=== PATIENT | female | born 2000 ===

== ENCOUNTER 2021-01-23 18:34 | Emergency (ER) | payer SELFPAY ==
--- NOTE | 2021-01-23 19:38 | Emergency Department Report ---
Chief Complaint: Dental/Oral Stated Complaint: TOOTH PAIN, VAGINAL IRRITATION Time Seen by Provider: 01/23/21 19:31 - HPI History of Present Illness: 20 year old female presents to ED with complaints of vaginal irritation and right lower dental pain. Onset few days ago. She reports no other symptoms. - Exam Vital Signs: Vital Signs 01/23/21 19:00 Temperature 99.6 F Pulse Rate 93 H Respiratory 16 Rate Blood Pressure 121/72 O2 Sat by Pulse 99 Oximetry MSE screening note: Focused history and physical exam performed. Due to findings the following was ordered: ED Medical Decision Making - Medical Decision Making 20 year old female presents to ED with complaints of vaginal irritation and right lower dental pain. Onset few days ago. She reports no other symptoms. Pt is well appearing, not toxic and not in acute distress. She has no trismus, or drooling on exam. She has normal voice, airway intact. She has no dental abscess, facial/neck swelling or cellulitis. She has no abd or pelvic pain. She is neurologically intact with normal gait. Her VS stable. Based on history and PE pt does not have medical emergency at this time. Pt given list for local dentist and community clinics to f/u with. Pt stable at time of d/c. ED Disposition for MSE Clinical Impression: Pain, dental, Vaginal irritation Disposition: MED SCREENING EXAM-LEFT Condition: Stable ED Review of Systems ROS: Stated complaint: TOOTH PAIN, VAGINAL IRRITATION Other details as noted in HPI Constitutional: no symptoms reported. denies: chills, fever ENT: dental pain Genitourinary: discharge, other (vaginal irritation). denies: urgency, dysuria, frequency, hematuria, abnormal menses, dyspareunia Musculoskeletal: denies: back pain Skin: denies: rash, lesions, change in color, change in hair/nails, pruritus Neurological: denies: headache, weakness, numbness, paresthesias, confusion, abnormal gait Psychiatric: denies: anxiety, depression, auditory hallucinations, visual hallucinations, homicidal thoughts, suicidal thoughts Hematological/Lymphatic: denies: as per HPI, easy bruising ED Physical Exam - General Limitations: No Limitations, Language Barrier General appearance: in no apparent distress - Head Head exam: Present: atraumatic, normocephalic, normal inspection - Eye Eye exam: Present: EOMI Pupils: Present: normal accommodation - ENT ENT exam: Present: normal exam, mucous membranes moist - Expanded ENT Exam Expanded 1 - Other (dental cavity, no abscess or swelling) Throat exam: Positive: normal inspection - Neck Neck exam: Present: normal inspection, full ROM - Respiratory Respiratory exam: Absent: respiratory distress - Cardiovascular Cardiovascular Exam: Present: regular rate - Neurological Exam Neurological exam: Present: alert, oriented X3, CN II-XII intact, normal gait - Psychiatric Psychiatric exam: Present: normal affect, normal mood - Skin Skin exam: Present: intact
== END 2021-01-23 20:00 | disposition left against medical advice (07) ==
LOC: ED 18:34